=== PATIENT | female | born 1955 | race Caucasian/White ===

== ENCOUNTER 2020-04-18 11:06 | Outpatient (CLI) | payer OTHER, MEDICARE ==
--- NOTE | 2020-04-18 13:05 | RAD ---
RADIOGRAPH RIGHT KNEE 4 VIEWS: Date: 04/18/2020 HISTORY: 64-year-old female with right knee pain. FINDINGS: Little or no joint effusion. Patellofemoral compartment: High grade joint space narrowing and moderate osteophytosis. Lateral compartment: Mild joint space narrowing with moderate osteophytosis. Medial compartment: Severe joint space narrowing with sclerosis and moderate osteophytosis. This results in mild varus angulation. 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 POS: [facility]
== END 2020-04-18 11:07 | disposition home or self-care (01) ==
LOC: NAV RAD 11:06
PROVIDERS: ATTEND Family Medicine
DX: R73.03 Prediabetes (principal); M17.11 Unilateral primary osteoarthritis, right knee